=== PATIENT | female | born 2000 | race Caucasian/White ===

== ENCOUNTER 2025-08-24 11:35 | Emergency (ER) | payer BC, SELFPAY ==
[2025-08-24 11:36] VITALS: BP 128/79; PULSE 100; RESP 14; TEMP 36.6; O2SAT 100; BMI 20.3
[2025-08-24 12:47] LABS: Hematocrit 42.9 % (37-47); Hemoglobin 14.6 g/dL (12.0-15.0); Immature Granulocytes Count 0.010 X10^3/uL (0.0-0.0); Mean Corp Hgb Conc 34.0 g/dL (32-36); Mean Corpuscular Volume 85.6 fL (81-99); Mean Platelet Vol. 9.7 fl (6.2-12.0); NRBC Flagged by Analyzer 0 % (0-5); Platelet Count 318 K/mm3 (150-450); RBC Distribution Width CV 11.6 % (11.6-14.6); RBC Distribution Width SD 36.5 fl (35.1-43.9); Red Blood Count 5.01 M/mm3 (4.2-5.4); White Blood Count 4.8 K/mm3 (4.4-11.0)
[2025-08-24 12:55] LABS: Internal QC Validated? YES +Cl - CLEAR BKGD; Pregnancy, Serum, hCG Quali. NEGATIVE Negative
[2025-08-24 13:17] LABS: AST(SGOT) 18 U/L (<=31); Alanine Aminotransfer ALT/SGPT 9 U/L (<=34); Albumin, Serum 4.7 g/dL (3.5-5.0); Alkaline Phosphatase 48 U/L (35-104); Anion Gap 11 (5-15); BUN 11 mg/dL (4-19); BUN/Creat Ratio 12.5 RATIO (10-20); Calcium,Total 9.6 mg/dL (7.6-11.0); Carbon Dioxide 24.9 mmol/L (21.0-32.0); Chloride 105 mmol/L (98-108); Estimated Creatinine Clearance 79.08 ml/min (50-250); Globulin 2.8 g/dL (2.2-4.2); Glucose 100 mg/dL (70-99); Lipase 16 U/L (13-75); Potassium 4.4 mmol/L (3.3-5.1)
[2025-08-24] MEDS: 0.9% Normal Saline (1000mL) 1,000 ML 999 ML IV (13:45)
--- NOTE | 2025-08-24 13:58 | EDS_ITS ---
HPI History of Present Illness Chief Complaint: Abd Pain Narrative Narrative: Chief complaint and HPI: 25-year-old female presents for evaluation of epigastric abdominal pain. Patient states for the past several weeks she has been having epigastric abdominal pain. Associated symptoms is nausea. She endorses some softer stools but not diarrhea. Her menstrual cycles have been regular and she is due to start in the next several days. Took a home test that was negative. She is sexually active. Endorses some mild dysuria. Denies any URI symptoms. No history of ulcers. States she occasionally think she gets reflux. Review of systems: See HPI Medications: As listed on the chart Allergies: As listed on the chart PFSH: Per chart Vital signs: As listed on the chart. Reviewed. Physical exam: Gen: A&O x3, NAD Head: Normocephalic, atraumatic Eyes: No sclera icterus, conjunctiva clear ENT: Moist mucous membranes CV: RRR, no murmurs, no peripheral edema Resp: Lungs CTA BL, no w/r/c GI: Abd soft, non-distended, non-tender, no r/r/g Musc: Full ROM, no deformity Skin: Warm, dry Psych: Cooperative, appropriate mood and affect PFS PFSH Medical History (Updated 08/24/25 @ 13:28 by Ananda Fraser) Anxiety Home Medications ?Medication ?Instructions ?Recorded ?Last Taken ?Type NK 08/24/25 Unknown History Allergy/AdvReac Type Severity Reaction Status Date / Time cefdinir AdvReac Nausea/Vom/ Verified 08/24/25 11:38 Diarrhea Social History Smoking Status: Current every day smoker tobacco type: e-cigarettes EXAM Physical Exam Const Vital Signs: 08/24/25 11:36 08/24/25 14:05 Temperature 97.8 F Temperature Source Temporal Pulse Rate 100 61 Respiratory Rate 14 16 Blood Pressure 128/79 H 121/82 H Blood Pressure Mean 95 95 Pulse Ox 100 97 Oxygen Delivery Method Room Air MDM MDM MDM Narrative Medical decision making narrative: 25-year-old female presents for evaluation of epigastric abdominal pain. Patient states for the past several weeks she has been having epigastric abdominal pain. Associated symptoms is nausea. She endorses some softer stools but not diarrhea. States she occasionally think she gets reflux. On presentation, patient no acute distress. Abdominal exam is relatively benign. Differential diagnosis includes but is not limited to gastritis, GERD, PUD, biliary disease, pancreatitis, , UTI. NS bolus, Pepcid, Zofran, morphine ordered for symptoms. Abdominal pain workup ordered including CT abdomen pelvis. CBC without leukocytosis or anemia. CMP unremarkable. Lipase unremarkable. Serum negative. CT abdomen pelvis shows small follicles are seen in the ovaries. Otherwise unremarkable. UA negative for UTI. At this point in time, no clear etiology to explain patient's epigastric pain. Suspect that this is gastritis. Follow-up with PCP and GI. Will place on daily Protonix. Patient confirmed understand the plan. Patient is able to discharge home. Impression: 1. Epigastric abdominal pain Lab Data Labs: Laboratory Results - last 24 hr 08/24/25 08/24/25 12:38 Unknown WBC 4.8 RBC 5.01 Hgb 14.6 Hct 42.9 MCV 85.6 MCH 29.1 MCHC 34.0 RDW Std Deviation 36.5 RDW Coeff of [place] 11.6 Plt Count 318 MPV 9.7 Immature Gran % (Auto) 0.200 Neut % (Auto) 59.1 Lymph % (Auto) 31.8 [place] % (Auto) 7.3 Eos % (Auto) 0.6 Baso % (Auto) 1.0 Absolute Neuts (auto) 2.8 Absolute Lymphs (auto) 1.52 Nucleated RBC % 0 Sodium 140 Potassium 4.4 Chloride 105 Carbon Dioxide 24.9 Anion Gap 11 BUN 11 Creatinine 0.91 Estim Creat Clear Calc 79.08 Est GFR (MDRD) Non-Af 92 BUN/Creatinine Ratio 12.5 Glucose 100 H Calcium 9.6 Total Bilirubin 0.55 AST 18 ALT 9 Alkaline Phosphatase 48 Total Protein 7.5 Albumin 4.7 Globulin 2.8 Albumin/Globulin Ratio 1.7 Lipase 16 Serum , Qual NEGATIVE Urine Color Straw Urine Clarity Clear Urine pH 6.5 Ur Specific [place] 1.010 Urine Protein 15 H Urine Glucose (UA) Normal Urine Ketones Negative Urine Occult Blood Negative Urine Nitrite Negative Urine Bilirubin Negative Urine Urobilinogen Normal Ur Leukocyte Esterase Negative Urine RBC 0 SEEN Urine WBC 0-5 SEEN Ur Squamous Epith Cells 50-100 SEEN Urine Bacteria RARE Urine Mucus 0 SEEN Radiography Diagnostic Testing: Clinical Impression(s) from Imaging Studies Abdomen/Pelvis CT 08/24/25 14:07 IMPRESSION: Small follicles are seen in the ovaries. Reading Location: [facility] Discharge Plan Triage Chief Complaint: Abd Pain ED Provider: Hemal Negro Dx/Rx/DC Orders Prescriptions: No Action NK Primary Care Provider: Chaim Gerber Referrals: Chaim Gerber [Other] Print Language: Turkmen
[2025-08-24 14:05] VITALS: BP 121/82; PULSE 61; RESP 16; O2SAT 97
--- NOTE | 2025-08-24 14:07 | CT_ITS ---
PROCEDURE: ABDOMEN/PELVIS W IV CONT ONLY 08/24/2025 REASON FOR EXAM: ABDOMINAL PAIN TECHNIQUE: Procedure Code: [id number] Modality: CT Procedure: ABDOMEN/PELVIS W IV CONT ONLY Coronal and Sagittal reconstruction series were provided. CONTRAST: Isovue-300 VOLUME: 75 mL One or more dose reduction techniques were used (e.g., Automated exposure control, adjustment of the mA and/or kV according to patient size, use of iterative reconstruction technique. RADIATION DOSE SUMMARY: CTDlvol: 6.8 mGy DLP: 342.37 mGycm COMPARISON: None FINDINGS: Lung bases: Unremarkable Liver: Normal size. No mass. Gallbladder: Unremarkable Spleen: Normal size. Pancreas: Normal size without evidence of mass surrounding inflammation or ductal dilation. Adrenals: Unremarkable Kidneys: Normal renal sizes. No hydronephrosis. Bladder: Unremarkable Reproductive Organs: Small follicles are seen in both ovaries. Bowel: Unremarkable Appendix: Unremarkable Lymph nodes: Unremarkable. Vasculature: The abdominal aorta and IVC are normal. Peritoneum / Retroperitoneum: Unremarkable Bones: Unremarkable CT/Abdomen/Pelvis W IV Cont ONLY IMPRESSION: Small follicles are seen in the ovaries. Reading Location: [id number]
[2025-08-24 14:56] LABS: Mucous, Urine 0 SEEN /hpf (<or=2+); Red Blood Cells-Urine 0 SEEN /hpf (0-5)
[2025-08-24 15:02] LABS: Color, Urine Straw (Yellow); Glucose, Dipstick Normal (Normal); Ketone-Dipstick Negative (Negative); Leukocyte Esterase-Dipstick Negative /ul (Negative); Nitrite-Dipstick Negative (Negative); Occult Blood-Urine Negative /ul (Negative); Protein-Dipstick 15 mg/dl (Negative); Specific Gravity, Urine 1.010 (1.002-1.030); Urine Bilirubin Dipstick Negative (Negative)
[2025-08-24 15:20] LABS: Squamous Epithelial Cells - UA 50-100 SEEN /hpf (5-10)
[2025-08-24 15:44] VITALS: BP 118/75; PULSE 71; RESP 18; TEMP 36.9; O2SAT 100
== END 2025-08-24 15:47 | disposition home or self-care (01) ==
PROVIDERS: Emergency Provider Surgery; Visit Provider Surgery
DX: R10.13 Epigastric pain (principal); R11.0 Nausea; R30.0 Dysuria; F17.290 Nicotine dependence, other tobacco product, uncomplicated
CPT/HCPCS: 74177; 80053; 81001; 83690; 84703; 85025; 96361; 96374; 96375; 99283; Q9967; A4216; J2405